=== PATIENT | female | born 1995 | race Caucasian/White ===

== ENCOUNTER 2023-03-11 09:34 | Emergency (ER) | payer OTHER, SELFPAY ==
[2023-03-11 09:36] VITALS: BP 134/80; PULSE 89; RESP 14; TEMP 36.3; O2SAT 97; BMI 34.9
--- NOTE | 2023-03-11 09:57 | US_ITS ---
STUDY: FIRST TRIMESTER OBSTETRICAL ULTRASOUND REASON FOR EXAM: Female, 27 years old. Bleeding. LMP: Unknown. TECHNIQUE: Transabdominal and Transvaginal scanning was performed. PRIOR ULTRASOUND: None. FINDINGS: There is visualization of a single gestational sac in a normal intrauterine position. There is no demonstrated yolk sac. There is visualization of a live embryo. The crown-rump length (CRL) measures 6.41 cm, indicating an estimated gestational age (EGA) of 12 weeks, 5 days. 2022. There is demonstrated cardiac activity with a heart rate of 153 bpm. The cervix measures 4.2 cm. The ovaries are not visualized. There is no fluid in the cul de sac. US/Init OB < 14Wks US IMPRESSION: Single live intrauterine gestation, as described above. Electronically Signed: Jh Osborn MD at 11:44 EDT ,
--- NOTE | 2023-03-11 09:59 | EDS_ITS ---
HPI HPI - Female History of Present Illness Chief Complaint: Vag Bld, Preg Narrative Narrative: Patient presents with vaginal bleeding that started this morning. Patient states that she think she is about 13 weeks . She is visiting from out of town and her prior care has been in [facility] as she is . Patient has had a pelvic ultrasound for this and all look normal. Patient denies significant abdominal pain just some intermittent sharp stabbing pain to the left lower quadrant that she rates may be a 3 or 4 out of 10. Patient has history of PCOS and is G9, P1. She has a positive blood type. PFSH PFSH Medical History no medical history Home Medications ondansetron 4 mg disintegrating tablet 4 mg PO Q8H PRN PRN Nausea #10 tabs 03/11/23 [Rx Last Taken Unknown] Allergy/AdvReac Type Severity Reaction Status Date / Time No Known Allergies Allergy Verified 03/11/23 09:38 Surgical History (Updated 03/11/23 @ 09:46 by Sofya Lind) History of cholecystectomy Social History Smoking Status: Former smoker ROS ROS ED Review of Systems ROS Unobtainable: other Constitutional Constitutional ED: Reports lethargy; Denies chills, fever(s), sweats or weight loss Eyes Eyes: Denies blurry vision, change in vision or diplopia ENT ENT ED: Denies rhinorrhea or sore throat Cardiovascular Cardiovascular: Reports chest pain and racing heartbeat; Denies orthopnea Respiratory/Chest Respiratory/Chest: Reports dyspnea and dyspnea on exertion; Denies cough, orthopnea or sputum Gastrointestinal Gastrointestinal: Denies abdominal pain, diarrhea, nausea or vomiting Genitourinary Genitourinary ED: Reports other Details: Vaginal bleeding ; Denies dysuria, hematuria or urinary frequency Musculoskeletal Musculoskeletal: Denies arthralgias, back pain, myalgias or neck pain Integumentary Denies abscess, Abrasions or rash Neurologic Neurologic: Denies headache(s) or weakness Psychiatric Psychiatric: Denies anxiety, depression or suicidal thoughts Endocrine Endocrinology: Denies polydipsia, polyphagia or polyuria Hematologic/Lymphatic Hematologic/Lymphatic: Denies easy bleeding, easy bruising or lymphadenopathy Allergic/Immunologic Allergic/Immunologic ED: Denies mouth swelling, tongue swelling or urticaria EXAM Physical Exam Const Vital Signs: 03/11/23 09:36 Temperature 97.3 F L Temperature Source Temporal Pulse Rate 89 Respiratory Rate 14 Blood Pressure 134/80 H Blood Pressure Mean 98 Pulse Ox 97 Oxygen Delivery Method Room Air Positive well nourished and well developed General Appearance ED: well developed and NAD HEENT Reports TM's clear and moist mucous membranes normocephalic and atraumatic; Negative for trauma or tenderness Tympanic Membrane ED: Yes TM's clear Eyes PERRL and EOMs intact bilaterally General Eye ED: Negative for pale conjunctiva or scleral icterus Neck no lymphadenopathy, supple and no JVD General: Negative for tenderness Chest Wall inspection of chest normal and palpation of chest normal Chest: Negative for tenderness Resp normal respiratory effort and clear to auscultation bilaterally Effort and Inspection: Negative for respiratory distress or pain with movement Auscultation: Negative for rhonchi, wheezes or diminished lung sounds Cardio regular rate, regular rhythm, S1 normal heart sound, S2 normal heart sound and no murmurs Peripheral Pulses: pulses 2+ throughout GI normal to inspection, nondistended, normoactive bowel sounds, soft to palpation, non-tender, non-distended and no masses Back/Spine no CVA tenderness and no thoracic nor lumbar tenderness Extremity normal to inspection General Extremety ED: Negative for edema General Extremity: Negative for edema Neuro oriented x3, CN's II-XII intact bilaterally, no sensory deficits noted and gait normal Sensorium / Orientation: awake, alert, oriented to person, oriented to place and oriented to time Motor Exam: strength 5/5 throughout and strength abnormal Psych mental status grossly normal Skin no rashes or lesions noted and no wounds MDM MDM MDM Narrative Medical decision making narrative: Patient presents with vaginal bleeding that started this morning. 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 In the differential would be subchorionic hemorrhage versus threatened . IV line established. CBC with differential obtained showed a white count of 8.7 with hemoglobin of 13 and platelet count of 221. hCG quant was 63,462. Blood type is a positive. We did obtain a pelvic ultrasound that showed single live intrauterine with a heartbeat of 153 bpm with no significant abnormalities noted. Fetus measured 12 weeks 5 days. Patient will be advised on pelvic rest. We will discuss with [facility] physician on-call for no doc as patient will be in the area until mid March. Patient advised to return if persistent heavy bleeding, severe abdominal pain, or condition should worsen anyway. Lab Data Labs: Laboratory Results - last 24 hr 03/11/23 03/11/23 03/11/23 10:03 10:03 10:03 WBC 8.7 RBC 4.06 L Hgb 13.0 Hct 37.1 MCV 91.4 MCH 32.0 MCHC 35.0 RDW Std Deviation 38.9 RDW Coeff of Felicia 11.7 Plt Count 221 MPV 9.8 Immature Gran % (Auto) 0.300 Neut % (Auto) 72.7 H Lymph % (Auto) 17.7 L [place] % (Auto) 8.4 Eos % (Auto) 0.7 Baso % (Auto) 0.2 Absolute Neuts (auto) 6.3 Absolute Lymphs (auto) 1.54 Nucleated RBC % 0 HCG, Quant 57225 H Blood Type A POSITIVE Radiography Diagnostic Testing: Clinical Impression(s) from Imaging Studies Obstetrics Ultrasound 03/11/23 09:57 IMPRESSION: Single live intrauterine gestation, as described above. Electronically Signed: Jh Osborn MD at 11:44 EDT , Discharge Plan Triage Chief Complaint: Vag Bld, Preg ED Provider: Gautam Shukla Dx/Rx/DC Orders Clinical Impression: Threatened in first trimester Instructions: ED Possible Miscarriage ... Prescriptions: New ondansetron [ondansetron] 4 mg tablet,disintegrating 4 mg PO Q8H PRN PRN (Reason: Nausea) Qty: 10 0RF Primary Care Provider: Care Physician,No Primary Referrals: Huang Lozoya MD [Med Staff - Active Staff] - 3-5 Days Care Physician,No Primary [Primary Care Provider] - Disposition Disposition: Home, Self Care
[2023-03-11 10:22] LABS: Absolute Lymphocyte Count 1.54 X10^3/uL (0.83-4.51); Absolute Neutrophil Count 6.3 X10^3/uL (2.0-7.7); Basophil# 0.02 X10^3/uL; Basophil% 0.2 % (0-1); Eosinophil# 0.06 X10^3/uL; Eosinophils% 0.7 % (0-5); Hematocrit 37.1 % (37-47); Lymphocyte # 1.54 X10^3/ul (0.83-4.51); Lymphocyte % 17.7 % (19-41); Mean Corpuscular Volume 91.4 fL (81-99); Mean Platelet Vol. 9.8 fl (6.2-12.0); Monocyte# 0.73 X10^3/uL; Monocyte% 8.4 % (0-10); NRBC Flagged by Analyzer 0 % (0-5); Neutrophil # 6.32 X10^3/uL (2.7-7.7); Neutrophil % 72.7 % (47-70); Platelet Count 221 K/mm3 (150-450); RBC Distribution Width CV 11.7 % (11.6-14.6); RBC Distribution Width SD 38.9 fl (35.1-43.9); Red Blood Count 4.06 M/mm3 (4.2-5.4); White Blood Count 8.7 K/mm3 (4.4-11.0)
[2023-03-11] MEDS: Ondansetron 4 MG/2 ML Vial IV (11:28)
== END 2023-03-11 12:39 | disposition home or self-care (01) ==
PROVIDERS: Emergency Provider Emergency Medicine; Visit Provider Emergency Medicine
DX: O20.0 Threatened abortion (principal); Z87.891 Personal history of nicotine dependence; Z3A.12 12 weeks gestation of pregnancy
CPT/HCPCS: 76801; 84702; 85025; 86900; 86901; 96374; 99282; J2405

== ENCOUNTER 2023-03-13 00:25 | Emergency (ER) | payer OTHER, SELFPAY ==
[2023-03-13 00:26] VITALS: BP 118/97; PULSE 111; RESP 16; TEMP 36.7; O2SAT 99; BMI 36.1
[2023-03-13] MEDS: Morphine 4 MG/ML Syringe IV ×2 (00:34→01:47)
[2023-03-13] MEDS: Ondansetron 4 MG/2 ML Vial IV (00:34)
[2023-03-13 00:44] LABS: Absolute Lymphocyte Count 3.02 X10^3/uL (0.83-4.51); Absolute Neutrophil Count 7.4 X10^3/uL (2.0-7.7); Basophil# 0.02 X10^3/uL; Basophil% 0.2 % (0-1); Eosinophil# 0.11 X10^3/uL; Eosinophils% 0.9 % (0-5); Hematocrit 37.9 % (37-47); Hemoglobin 12.9 g/dL (12.0-15.0); Lymphocyte # 3.02 X10^3/ul (0.83-4.51); Lymphocyte % 25.7 % (19-41); Mean Platelet Vol. 9.8 fl (6.2-12.0); Monocyte# 1.13 X10^3/uL; Monocyte% 9.6 % (0-10); NRBC Flagged by Analyzer 0 % (0-5); Neutrophil # 7.43 X10^3/uL (2.7-7.7); Neutrophil % 63.3 % (47-70); Platelet Count 254 K/mm3 (150-450); RBC Distribution Width CV 11.8 % (11.6-14.6); RBC Distribution Width SD 40.6 fl (35.1-43.9); Red Blood Count 4.03 M/mm3 (4.2-5.4); White Blood Count 11.8 K/mm3 (4.4-11.0)
--- NOTE | 2023-03-13 01:03 | EDS_ITS ---
HPI HPI - Female History of Present Illness Chief Complaint: Vag Bld, Preg Informant: patient Narrative Narrative: Patient is a A6 states she is about 12 or 13 weeks , was seen here yesterday for [place] of vaginal bleeding and had a ultrasound that showed that everything was good, and now she states the bleeding abruptly became severe tonight along with clots and suprapubic pain. No syncope. No recent injuries o r falls. She is concerned she is miscarrying again. PFSH PFSH Medical History no medical history no medical history Home Medications ondansetron 4 mg disintegrating tablet 4 mg PO Q8H PRN PRN Nausea #10 tabs 03/11/23 [Rx Last Taken Unknown] hydrocodone-acetaminophen 5-325mg 5mg-325mg 1 tab PO Q6H PRN PRN Pain 3 days #10 TABLETS 03/13/23 [Rx Last Taken Unknown] Allergy/AdvReac Type Severity Reaction Status Date / Time No Known Allergies Allergy Verified 03/13/23 00:28 Surgical History History of cholecystectomy Social History Smoking Status: Former smoker ROS ROS ED Constitutional Constitutional ED: Denies chills or fever(s) Eyes Eyes: Denies change in vision or diplopia ENT ENT ED: Denies rhinorrhea or sore throat Cardiovascular Cardiovascular: Denies chest pain or palpitations Respiratory/Chest Respiratory/Chest: Denies cough or dyspnea Gastrointestinal Gastrointestinal: Reports abdominal pain; Denies diarrhea, nausea or vomiting Genitourinary Genitourinary ED: Denies dysuria or hematuria Musculoskeletal Musculoskeletal: Denies back pain or neck pain Integumentary Denies abscess or rash Neurologic Neurologic: Denies headache(s), paresthesias or weakness Psychiatric Psychiatric: Reports anxiety; Denies suicidal thoughts EXAM Physical Exam Const Vital Signs: 03/13/23 00:26 Temperature 98.1 F Temperature Source Temporal Pulse Rate 111 H Respiratory Rate 16 Blood Pressure 118/97 H Blood Pressure Mean 104 Pulse Ox 99 Oxygen Delivery Method Room Air Positive well nourished and well developed General Appearance ED: well developed and NAD HEENT Reports moist mucous membranes normocephalic and atraumatic Eyes PERRL and EOMs intact bilaterally Neck full ROM and supple Resp normal respiratory effort and clear to auscultation bilaterally Cardio regular rate, regular rhythm and no murmurs Rate: other Other Details: Mild tachycardia GI non-distended GI Narrative: Moderately tender suprapubic area no guarding or rebound otherwise benign Auscultation: normoactive bowel sounds Palpation: soft Narrative: External unremarkable. Speculum exam, there is significant amount of blood in the vaginal vault. This was suctioned using a Yankauer, and with repositioning of the speculum I was able to visualize the cervix which is benign-appearing, it is not open, there is mild active vaginal bleeding, I am able to clear the blood away, there were clots removed prior to exam and captured by nursing, but no other clots in the vault and no tissue within the cervical os. Back/Spine no CVA tenderness General Back: other FROM Extremity normal to inspection General Extremety ED: Negative for edema, pulses abnormal or tenderness General Extremity: Negative for edema or pulses abnormal Neuro oriented x3, CN's II-XII intact bilaterally and no sensory deficits noted Sensorium / Orientation: awake and alert Motor Exam: strength 5/5 throughout Psych mental status grossly normal Skin no rashes or lesions noted and no wounds MDM MDM MDM Narrative Medical decision making narrative: After the pelvic exam performed as above, I did an ultrasound at the bedside, there is a single live intrauterine with good heart tones of 161 and good movement, amniotic fluid appears to be intact. Does not appear to be an obvious placenta previa or abruption which would be unusual at this gestational age. Patient still having a lot of pain so she was given a second dose of morphine for that which helped both times. She is not bleeding heavily and the bleeding has subsided. Blood type is a positive as measured yesterday so she does not need RhoGAM. I did obtain blood counts which look stable and her vital signs remained stable. She is going to be here until April 08, and then she and her significant other will be in [place] due to placement where she will be for over 2 years. She was referred to Dr. Lozoya when she was here yesterday, has not had a chance to make an appointment yet. History & Record Review Additional record(s) reviewed:: Prior ED visit Lab Data Attestation: I reviewed the patient's lab results. Labs: Laboratory Results - last 24 hr 03/13/23 00:35 WBC 11.8 H RBC 4.03 L Hgb 12.9 Hct 37.9 MCV 94.0 MCH 32.0 MCHC 34.0 RDW Std Deviation 40.6 RDW Coeff of Felicia 11.8 Plt Count 254 MPV 9.8 Immature Gran % (Auto) 0.300 Neut % (Auto) 63.3 Lymph % (Auto) 25.7 [place] % (Auto) 9.6 Eos % (Auto) 0.9 Baso % (Auto) 0.2 Absolute Neuts (auto) 7.4 Absolute Lymphs (auto) 3.02 Nucleated RBC % 0 Discharge Plan Triage Chief Complaint: Vag Bld, Preg ED Provider: Horacio Muñiz Dx/Rx/DC Orders Clinical Impression: Threatened in first trimester Instructions: ED Possible Miscarriage ... Prescriptions: New hydrocodone-acetaminophen [hydrocodone-acetaminophen] 5-325 mg tablet 1 tab PO Q6H PRN PRN (Reason: Pain) 3 Days Qty: 10 0RF No Action ondansetron [ondansetron] 4 mg tablet,disintegrating 4 mg PO Q8H PRN PRN (Reason: Nausea) Qty: 10 0RF Primary Care Provider: Care Physician,No Primary Referrals: Huang Lozoya MD [Med Staff - Active Staff] - As soon as possible Care Physician,No Primary [Primary Care Provider] - Disposition Disposition: Home, Self Care
[2023-03-13 01:53] VITALS: BP 134/74; PULSE 82; RESP 15; O2SAT 95
== END 2023-03-13 02:16 | disposition home or self-care (01) ==
PROVIDERS: Emergency Provider Emergency Medicine; Visit Provider Emergency Medicine
DX: O20.0 Threatened abortion (principal); Z3A.12 12 weeks gestation of pregnancy; Z87.891 Personal history of nicotine dependence; Z90.49 Acquired absence of other specified parts of digestive tract
CPT/HCPCS: 85025; 96361; 96374; 96375; 96376; 99283; J7040; A4216; J2405

== ENCOUNTER → 2023-03-14 | Outpatient (CLI) | payer OTHER, SELFPAY ==
--- NOTE | 2023-03-14 14:29 | VDLE_ITS ---
Reason For Study: Lt Leg Pain RIGHT LEFT CFV is compressible, spontaneous, phasic, GSV is normal. competent and demonstrates normal CFV is compressible, spontaneous, phasic, augmentation. competent, and demonstrates normal Procedure augmentation. This is a venous duplex using B-mode, color FV is compressible, spontaneous, phasic, flow and spectral Doppler. competent and demonstrates normal Exam performed in department. augmentation. The exam was diagnostic. POP V is compressible, spontaneous, phasic, A preliminary report was called and/or faxed competent and demonstrates normal to Dr. Briseno office. augmentation. T/P Trunk is compressible. PTV is compressible. LT PerV is compressible. VL/Venous Duplex US, Unilateral Interpretation Summary There is no evidence of left lower extremity deep vein thrombosis. Left great s aphenous vein appears patent and compressible segmentally. Normal flow patterns right common femoral vein Ordering Physician: Wendy Briseno Referring Physician: N/A Performed By: Aristides Hernandez RVT
== END | disposition home or self-care (01) ==
LOC: CVS 14:28
PROVIDERS: Referring Provider Obstetrics & Gynecology; Visit Provider Obstetrics & Gynecology
DX: M79.662 Pain in left lower leg (principal)
CPT/HCPCS: 93971